=== PATIENT | female | born 1965 | race American Indian/Alaskan Native ===

== ENCOUNTER 2017-05-11 13:47 | Outpatient (CLI) | payer OTHER | END 2017-05-11 13:48 | disposition home or self-care (01) | LOC: LABHHL 13:47 | PROVIDERS: ATTEND Surgery | DX: L72.3 Sebaceous cyst (principal) | CPT/HCPCS: 87075; 87076; 87116; 87186 ==

== ENCOUNTER 2020-05-26 10:19 | Outpatient (CLI) | payer OTHER ==
--- NOTE | 2020-05-26 14:11 | Mammography Report ---
BILATERAL DIGITAL SCREENING MAMMOGRAM WITH CAD HISTORY: SCREENING MAMMOGRAM TECHNIQUE: Routine digital mammographic imaging performed. This examination was interpreted with falguni olivares benefit of Computer-aided Detection analysis. COMPARISON: 05/21/2019, 05/13/2018, 05/11/2017, 05/08/2016. FINDINGS: Breast Density: heterogeneously dense breast parenchymal pattern which somewhat lessens the sensitivi ty of the evaluation. Digital CC and MLO views demonstrate no mammographic evidence of malignancy. Biopsy marker in the ri ght central breast is again noted. IMPRESSION: No mammographic evidence of malignancy. If the clinical examination remains stable, recommend bilate ral mammogram in approximately one year. BIRADS 2: Benign Finding(s). FURTHER INFORMATION: According to the [employer], yearly mammograms are recommend ed starting at age 40 and continuing as long as a woman is in good health. Clinical Breast Exams shou ld be part of a periodic health exam-about every 3 years for women in their 20s and 30s and every yea r for women 40 and over. Breast self exam is an option for women starting in their 20s. Any breast ch bg noted on a breast self exam should be reported promptly to the patient's healthcare provider. Br east MRI is recommended for women with an approximately 20-25% or greater lifetime risk of breast can cer, including women with a strong family history of breast or ovarian cancer and women who have been treated for Hodgkin's disease. A negative Mammography report should not discourage follow up or biopsy of a clinically significant f inding and/or abnormality. Dense breast tissue may obscure small neoplasms. The patient will be entered into a reminder system with a target due date for the next screening mamm ogram. Signer Name: Jelani Doll MD Signed: 05/26/2020 2:07 PM Workstation Name: [id number]
== END 2020-05-26 10:20 | disposition home or self-care (01) ==
LOC: SPVWC 10:19
PROVIDERS: ATTEND Surgery
DX: Z12.31 Encounter for screening mammogram for malignant neoplasm of breast (principal)
CPT/HCPCS: 77067